=== PATIENT | female | born 1945 | race Caucasian/White ===

== ENCOUNTER 2024-12-19 15:19 | Emergency (ER) | payer MEDICARE, SELFPAY ==
[2024-12-19 15:22] VITALS: BP 163/80
--- NOTE | 2024-12-19 17:02 | ED.SKININJ ---
HPI-Injury
General
Chief Complaint: Skin Surface Trauma
Source: patient
Exam Limitations: none
Time Seen by Provider: 12/19/24 16:25
Nursing documentation reviewed up to this point in time: agreed with
History of Present Illness-Injury
Is this injury a work related problem?: No
Is pt an associate of [facility]/[place]?: No
Initial Injury comments:
Scratched by dog. Has a skin tear to right dorsl forearm. Injury occurred just [employer]
Past History
Past History
ED Past Medical History: HTN
Review of Systems
Review of Systems
Allergies reviewed?: Yes
All Other Systems: ROS reviewed and negative except as documented in HPI and ROS
Constitutional: Reports no symptoms
Musculoskeletal: Reports no symptoms
Skin: Reports other (Skin tear right dorsal forearm)
Neurological: Reports no symptoms
Psychiatric: Reports no symptoms
Skin Exam
Laceration
Right dorsal forearm:
Length in cm: 2
Orientation: stellate
Type of Laceration: simple
Any active bleeding?: low grade venous oozing
Distal skin color and temperature: normal-warm & good color
Normal distal neurovascular exam: Yes
Range of motion: full
Phy Exam
General Physical Exam
General Presentation: well appearing and no apparent distress
General age: appears stated age
General Skin: warm and dry
General Habitus: normal
General Mental: alert
Musculoskeletal Exam
Musculoskeletal Exam: full ROM and neuro vasc intact
Skin Exam
Skin Exam: normal color, warm/dry and no rash
Psychiatric Exam
Psychiatric Exam: normal mood/affect
Course
Orders/Labs/Results
Orders:
Orders
12/19/24 17:01
Tetanus/Diphth/Acelpertussis [Adacel] 0.5 ml IM .ONCE ONE
Vital Signs
Initial and Last Documented VS:
Initial Vital Signs
Temp Pulse Resp BP Pulse Ox
98.1 F 71 20 163/80 98
12/19/24 15:22 12/19/24 15:22 12/19/24 15:22 12/19/24 15:22 12/19/24 15:22
Last Documented Vital Signs
Temp Pulse Resp BP Pulse Ox
98.1 F 71 20 163/80 98
12/19/24 15:22 12/19/24 15:22 12/19/24 15:22 12/19/24 15:22 12/19/24 17:06
Procedures
Laceration Closure
Right dorsal forearm:
Status of Wound: clean
Description of Wound Edges: ragged
Preparation: cleaned with saline and cleaned with Betadine
Anesthesia: 1% Lidocaine with epi
Revision/Debridement: routine- no revision
Wound exploration: explored to base- no FB
Type of Closure: single layer closure
Skin Closure Material: 5-0 prolene
*Pulse Oximetry
SaO2: 98
Oxygen Mode of Delivery: Room air
Patient hypoxic: no
*Critical Care Note
Total Time (30-74mins, 75-104mins- exclusive of procedures): Not Applicable
ED Attending Note
-
Portions of this chart may have been created with voice recognition software.� Occasional wrong word or��sound alike� substitutions may have occurred due to the inherent limitations of voice recognition software.
Discharge Plan
Departure
Patient Disposition: Home (Routine Discharge)
Date of Disposition: 12/19/24
Time of Disposition: 17:06
Patient with high blood pressure during this ER visit?: No
Condition: Good
Covid-19: Not Applicable
Discharge Problem:
Skin tear of upper extremity
Instructions: Laceration Repair With Stitches (DC)
Activity Restrictions/Additional Instructions:
Sutures can be removed n 7-10 days by your family doctor
Interventions
Interventions:
*Risk Screen - Suicide Last Done: 12/19/24 16:31
*General Assessment Last Done: 12/19/24 15:22
*Neglect/Abuse Screening Last Done: 12/19/24 16:31
*ED- Fall Risk Assessment Last Done: 12/19/24 16:31
*ED COVID-19 Vaccine History Last Done: 12/19/24 16:31
*Nursing Disposition Last Done: 12/19/24 17:24
ED-Skin Assessment Last Done: 12/19/24 16:31
Discharge Date and Time
Discharge Date/Time: 12/19/24 17:24
Print Language: CHILEAN
[2024-12-19] MEDS: ADACEL 0.5 ML IM (17:08)
== END 2024-12-19 17:24 | disposition home or self-care (01) ==
LOC: EMR 15:19
PROVIDERS: EMERGENCY PHYSICIAN Emergency Medicine
DX: S51.811A Laceration without foreign body of right forearm, initial encounter (principal); W54.0XXA Bitten by dog, initial encounter; I10 Essential (primary) hypertension; Z23 Encounter for immunization
CPT/HCPCS: 99284; 12001; 90471; 90715